=== PATIENT | female | born 1950 | race Caucasian/White ===

== ENCOUNTER 2018-07-07 16:14 | Emergency (ER) | payer MEDICARE, OTHER ==
[2018-07-07] MEDS ORDERED: Ketorolac Tromethamine 30 MG/ML VIAL ONE (16:35)
[2018-07-07 16:58] LABS: #Basophils 0.1 thou/uL (0.0-0.2); #Eosinphils 0.1 thou/uL (0.0-0.7); #Lymphocytes 2.4 thou/uL (1.20-3.40); #Monocytes 0.8 thou/uL (0.11-0.59); #Neutrophils 7.4 thou/uL (1.40-6.50); %Basophils 0.7 % (0.0-1.0); %Eosinophils 0.6 % (0.0-10.0); %Monocytes 7.4 % (0.0-10.0); %Neutrophils 69.4 % (42.0-75.0); Hemoglobin 13.4 g/dL (12.0-16.0); Mean Corpuscular HGB CONC 33.5 g/dL (32.0-36.0); Mean Corpuscular Hemoglobin 30.4 pg (27.0-31.0); Mean Corpuscular Volume 90.7 fL (78.0-98.0); Mean Platelet Volume 7.7 fL (7.4-10.4); Platelet Count 327 thou/uL (130-400); RBC Distribution Width 12.7 % (11.5-14.5); Red Blood Cell (RBC) Count 4.42 mill/uL (4.20-5.40); White Blood Cell (WBC) Count 10.7 thou/uL (4.8-10.8)
[2018-07-07 17:21] LABS: ALT (SGPT) 10 U/L (8-55); AST (SGOT) 17 U/L (5-34); Albumin 3.9 g/dL (3.4-4.8); Alkaline Phosphatase 81 U/L (40-150); Anion Gap 17 mmol/L (10-20); BUN (Urea Nitrogen) 21 mg/dL (9.8-20.1); Bilirubin, Total 0.2 mg/dL (0.2-1.2); Calc. Creatinine Clearance 0 mL/min (70-130); Calcium 8.8 mg/dL (7.8-10.44); Carbon Dioxide 18 mmol/L (23-31); Chloride 104 mmol/L (98-107); Estimated GFR-MDRD 52; Globulin 3.5 g/dL (2.4-3.5); Glucose 89 mg/dL (80-115); Lipase 19 U/L (8-78); Potassium 4.6 mmol/L (3.5-5.1); Protein, Total 7.4 g/dL (6.0-8.3); Sodium 134 mmol/L (136-145)
--- NOTE | 2018-07-07 17:21 | CT ---
CT ABDOMEN AND PELVIS WITHOUT CONTRAST: 07/07/18 HISTORY: Urinary tract infection and flank pain bilaterally. COMPARISON: None. FINDINGS: Lung bases are clear. No pericardial effusion. Gastric band is seen. No nephroureterolithiasis or hydroureteronephrosis. No secondary evidence of recently passed stone. Noncontrast evaluation of the spleen, pancreas, unremarkable. Hepatic hypodensity segment V likely a cyst. There are no dilated loops of large or small bowel. Although the pancreas is not definitely visualize d, there are no secondary signs of acute appendicitis. No retroperitoneal adenopathy. End plate irregularity at superior end plate of T11 and inferior end plate of T10 with vacuum disc ph enomenon which may sequela of degenerative changes or prior discitis/osteomyelitis. No paraspinal hem atoma. IMPRESSION: 1. No nephroureterolithiasis or hydroureteronephrosis. No secondary evidence of recently passed stone. 2. T11 vertebral body height loss with erosions of the T10 inferior end plate and T11 superior e nd plate may be sequela of prior discitis/osteomyelitis as there is vacuum disc phenomenon at this le ron. No evidence for active infection, although if clinically warranted, MRI should be obtained. 3. No acute inflammatory process within the abdomen or pelvis. POS: [facility]
[2018-07-07 17:37] LABS: Bilirubin Negative (Negative); Blood, Urine Moderate (Negative); Clarity CLEAR (Clear); Glucose, Urine (Dipstick) Negative (Negative); Leukocyte Negative (Negative); Nitrite Negative (Negative); Protein, Urine (Dipstick) Negative (Neg-Trace); Specific Gravity, Urine 1.008 (1.002-1.036); Urobilinogen 0.2 mg/dL (0.2-1.0); pH, Urine 6.5 (5.0-9.0)
[2018-07-07 17:39] LABS: Bacteria/HPF None Seen HPF (None Seen); Hyaline Casts/LPF 0-3 HYALINE CAST LPF (0-3 Hyaline); Squamous Epithelial 0-3 HPF (0-3); WBC/HPF None Seen HPF (0-3)
== END 2018-07-07 18:21 | disposition home or self-care (01) ==
LOC: ERS 16:14
DX: M51.34 Other intervertebral disc degeneration, thoracic region (principal); F41.9 Anxiety disorder, unspecified; F32.9 Major depressive disorder, single episode, unspecified; K21.9 Gastro-esophageal reflux disease without esophagitis
CPT/HCPCS: 74176; 80053; 81003; 81015; 83690; 85025; 85652; 86140; 87086; 96361; 96374; J1885

== ENCOUNTER 2019-04-23 12:57 | Outpatient (CLI) | payer MEDICARE ==
--- NOTE | 2019-04-23 15:15 | MMO ---
Bilateral MAMMO Bilat Screen [facility]. CLINICAL HISTORY: Patient is 69 years old and is seen for screening. The patient has the following family history of breast cancer: paternal grandmother, at age 75. The patient has no personal history of cancer. VIEWS: The views performed were: bilateral craniocaudal with tomosynthesis and bilateral mediolateral oblique with tomosynthesis. FILMS COMPARED: The present examination has been compared to prior imaging studies performed at [facility] on 12/06/2007, 11/02/2009, 11/08/2012 and 08/02/2016. This study has been interpreted with the assistance of computer-aided detection. MAMMOGRAM FINDINGS: The breasts are almost entirely fat. There are no suspicious masses, suspicious calcifications, or new areas of architectural distortion. IMPRESSION: THERE IS NO MAMMOGRAPHIC EVIDENCE OF MALIGNANCY. A ROUTINE FOLLOW-UP MAMMOGRAM IN 1 YEAR IS RECOMMENDED. THE RESULTS OF THIS EXAM WERE SENT TO THE PATIENT. ACR BI-RADS Category 1 - Negative MAMMOGRAPHY NOTE: 1. A negative mammogram report should not delay a biopsy if a dominant of clinically suspicious mass is present. 2. Approximately 10% to 15% of breast cancers are not detected by mammography. 3. Adenosis and dense breasts may obscure an underlying neoplasm. Reported by: ALEJANDRO CABRERA MD Electonically Signed: [id number]
== END 2019-04-23 12:58 | disposition home or self-care (01) ==
LOC: BICMAMMO 12:57
PROVIDERS: ATTEND Specialist
DX: Z12.31 Encounter for screening mammogram for malignant neoplasm of breast (principal); Z80.3 Family history of malignant neoplasm of breast
CPT/HCPCS: 77063; 77067

== ENCOUNTER 2020-05-18 09:06 | Inpatient (IN) | payer MEDICARE ==
[2020-05-18] MEDS ORDERED: Dexamethasone 20 MG/5 ML VIAL ONE (09:31)
[2020-05-18] MEDS ORDERED: Succinylcholine 200 MG/10 ml SYRINGE FS ONE (09:31)
[2020-05-18] MEDS ORDERED: ePHEDrine 50 MG/ML VIAL ONE (09:31)
[2020-05-18] MEDS ORDERED: PHENYLEPHRINE-NS 100 MCG/ML 10 ML SYRINGE ONE (09:31)
[2020-05-18] MEDS ORDERED: Lidocaine 1% PF 5 ML VIAL ONE (09:31)
[2020-05-18] MEDS ORDERED: Rocuronium Bromide 10 MG/ML (10ML VIAL) ONE (09:31)
[2020-05-18] MEDS ORDERED: PROPOFOL 200 MG/20 ML VIAL ONE (09:31)
[2020-05-18] MEDS ORDERED: Glycopyrrolate 0.2 MG/ML 5 ML SYRINGE ONE (09:31)
[2020-05-18] MEDS ORDERED: Ondansetron PF 4 MG/2 ML Vial ONE ×3 (09:31→10:04)
[2020-05-18] MEDS ORDERED: Morphine 4 MG/ML VIAL ONE ×2 (09:36→11:56)
[2020-05-18 10:06] LABS: #Eosinphils 0.1 thou/uL (0.0-0.7); #Monocytes 0.5 thou/uL (0.11-0.59); #Neutrophils 8.9 thou/uL (1.40-6.50); %Basophils 0.3 % (0.0-1.0); %Eosinophils 0.4 % (0.0-10.0); %Lymphocytes 29.5 % (21.0-51.0); %Monocytes 3.7 % (0.0-10.0); %Neutrophils 66.1 % (42.0-75.0); Hemoglobin 15.8 g/dL (12.0-16.0); Mean Corpuscular HGB CONC 33.4 g/dL (32.0-36.0); Mean Corpuscular Hemoglobin 31.2 pg (27.0-31.0); Mean Corpuscular Volume 93.6 fL (78.0-98.0); Platelet Count 344 thou/uL (130-400); RBC Distribution Width 12.4 % (11.5-14.5); Red Blood Cell (RBC) Count 5.06 mill/uL (4.20-5.40); White Blood Cell (WBC) Count 13.5 thou/uL (4.8-10.8)
--- NOTE | 2020-05-18 10:08 | RAD ---
CHEST 1 VIEW: Date: 05/18/2020 HISTORY: Abdominal pain. COMPARISON: 01/10/2017. FINDINGS: Heart size is within normal limits. Status post ACF changes lower cervical spine. There appears to be a faint small patch of increased density over the right upper mid lateral lung zone, nonspecific, co nceivably this could represent a very small patch of minimal or early pneumonitis including viral pne umonia and COVID pneumonia. No overt confluent process. No pleural effusion. No cardiomegaly. No evid ence for free intraperitoneal air. IMPRESSION: Very small patchy minimal increased density in the lateral aspect of the right upper lung zone, possi andressa a small patch of pneumonia or pneumonitis, including COVID pneumonia. No other significant acute process. POS: [facility]
[2020-05-18 10:30] LABS: ALT (SGPT) 15 U/L (8-55); AST (SGOT) 17 U/L (5-34); Albumin 3.9 g/dL (3.4-4.8); Alkaline Phosphatase 92 U/L (40-110); Anion Gap 17 mmol/L (10-20); BUN (Urea Nitrogen) 19 mg/dL (9.8-20.1); Bilirubin, Total 0.4 mg/dL (0.2-1.2); Calc. Creatinine Clearance 0 mL/min (70-130); Carbon Dioxide 17 mmol/L (23-31); Chloride 110 mmol/L (98-107); Globulin 3.4 g/dL (2.4-3.5); Glucose 169 mg/dL (83-110); Potassium 3.4 mmol/L (3.5-5.1); Protein, Total 7.3 g/dL (6.0-8.3); Sodium 141 mmol/L (136-145)
[2020-05-18] MEDS ORDERED: Iopamidol 370 76% 50 ML VIAL FS ONE (10:38)
[2020-05-18] MEDS ORDERED: Iopamidol-370 76% 500 ML 1 ML ONE (10:38)
[2020-05-18] MEDS ORDERED: Promethazine HCl 25 MG/ML VIAL ONE (11:56)
[2020-05-18] MEDS ORDERED: Piperacillin/Tazobactam 3.375 GM VIAL ONE (11:56)
--- NOTE | 2020-05-18 12:00 | CT ---
EXAM: CT Abdomen Pelvis W Con PROVIDED CLINICAL HISTORY: Abdominal pain COMPARISON: No comparison examinations are currently available FINDINGS: The visualized lung bases are free of significant opacity. There is conspicuous pneumoperitoneum. Postoperative changes of gastric bypass are demonstrated. Ther e is an ectatic appearance to the bowel about the enteric-enteric anastomosis with associated bowel dilatation and retained bowel content. There is free fluid present within the pelvis, as well as abou t the liver and spleen. The liver demonstrates a probable cyst. The solid abdominal organs demonstrate an otherwise unremarka ble CT appearance. Regional bowel appears otherwise nondilated. No focal inflammatory fat stranding is seen. Occasional atherosclerotic vascular calcifications. Post cholecystectomy change. The osseous structures demonstrate no concerning lytic or blastic lesions. Chronic appearing deformity of the right iliac wing. Small fat-containing umbilical hernia. Fat necrosis is seen involving the subcutane ous fat of the anterior abdominal wall just cranial to the umbilicus left of midline. IMPRESSION: Pneumoperitoneum and free intraperitoneal fluid, compatible with perforated viscus. Surgical consulta tion is recommended. Findings communicated to the referring clinician 11:55 AM 05/18/2020.
[2020-05-18] MEDS ORDERED: Fentanyl 250 MCG/5 ML VIAL ONE (12:37)
[2020-05-18] MEDS ORDERED: Midazolam HCl 2 mg/2 ml Vial ONE (12:37)
--- NOTE | 2020-05-18 13:22 | HP ---
CHIEF COMPLAINT: Perforated viscus. HISTORY OF PRESENT ILLNESS: This is a 70-year-old female who is one year status post laparoscopic gastric bypass done at [facility] in [place]. No significant complications postsurgical. She has lost 50 pounds. Denies chronic GERD type symptoms. She has had more upper abdominal pain in the last few weeks, was started back on antacid. The pain became more sharp this morning where she was seen in the emergency room. She was hypotensive and tachycardic on presentation. Her tachycardia and hypotension have improved somewhat with some IV fluids. She notes nausea. She notes diffuse abdominal pain that is 8/10 sharp, constant, nothing makes it better or worse. PAST MEDICAL HISTORY: She denies. PAST SURGICAL HISTORY: Gastric bypass, hysterectomy, cholecystectomy, neck surgery. MEDICINES: PPI. ALLERGIES: NO KNOWN DRUG ALLERGIES. SOCIAL HISTORY: No smoking. No alcohol. No other drugs. REVIEW OF SYSTEMS: A 10 system review of systems otherwise negative described above. PHYSICAL EXAMINATION: VITAL SIGNS: Blood pressure 112/81, her pulse is 109, respirations 12, she is afebrile. HEENT: Sclerae anicteric. Oropharynx clear. NECK: No lymphadenopathy. CHEST: Clear. HEART: Increased rate, regular rhythm. CHEST: Coarse breath sounds. ABDOMEN: Soft, diffusely tender with diffuse peritoneal signs. Well-healed abdominal incisions without obvious hernia. EXTREMITIES: No ischemia or edema to extremities. LABORATORY DATA: White blood cell count is 13, hemoglobin 15. Sodium 141, potassium 3.4, creatinine 0.93. IMAGING DATA: CT scan shows free fluid, free air in the abdomen. ASSESSMENT: Perforated viscus, likely gastrojejunostomy, perforated ulcer. PLAN: Exploratory laparotomy, washout repair. Risks, benefits, and alternatives discussed, she gives consent, we will do this today. Job ID: [id number]
[2020-05-18] MEDS ORDERED: Ondansetron HCl/PF 4 MG/2 ML Vial IVP PRN (14:53)
[2020-05-18] MEDS ORDERED: Promethazine HCl 25 MG/ML VIAL IM PRN ×3 (14:53→16:05)
[2020-05-18] MEDS ORDERED: Promethazine HCl 25 MG/ML VIAL SLOW IVP PRN (14:53)
[2020-05-18] MEDS ORDERED: Fentanyl 100 MCG/2 ML VIAL ONE (15:03)
[2020-05-18] MEDS ORDERED: diphenhydrAMINE 50 MG/ML VIAL IVP PRN (15:24)
[2020-05-18] MEDS ORDERED: Naloxone HCl 0.4 mg/ml Vial IV PRN (15:24)
[2020-05-18] MEDS ORDERED: diphenhydrAMINE 50 MG/ML VIAL IM PRN (15:24)
[2020-05-18] MEDS ORDERED: Zolpidem Tartrate 5 MG TAB PO PRN (15:24)
[2020-05-18] MEDS ORDERED: fentaNYL Citrate/PF 2,000 MCG in Sodium Chloride 0.9% 60 ML IV PRN ×2 (15:24→16:16)
[2020-05-18] MEDS ORDERED: Ondansetron PF 4 MG/2 ML Vial IVP PRN ×2 (15:24→16:05)
[2020-05-18] MEDS ORDERED: diphenhydrAMINE 25 MG CAP PO PRN (15:24)
[2020-05-18] MEDS ORDERED: Communication Order-Pharmacy FS SCH (15:30)
[2020-05-18] MEDS ORDERED: Dextrose 50% Abboject 50 ML SYRINGE SLOW IVP PRN (16:05)
[2020-05-18] MEDS ORDERED: Dextrose 5% in Water 1,000 ML IV PRN (16:05)
[2020-05-18] MEDS ORDERED: hydrALAZINE 20 MG/ML VIAL SLOW IVP PRN (16:05)
[2020-05-18 16:09] LABS: SARS-CoV-2 NAA Rapid Test Not Detected (NotDetected)
[2020-05-18 18:31] LABS: Lactic Acid 4.3 mmol/L (0.5-2.2)
[2020-05-18 20:40] VITALS: BMI 37.4
[2020-05-18] MEDS: D5 1/2 NS w/20 mEq KCL 1,000 ML IV SCH (20:41)
[2020-05-18] MEDS: Piperacillin/Tazobactam 3.375 GM in Sodium Chloride 0.9% 100 ML IVPB SCH (20:41)
[2020-05-18] MEDS: Fluconazole In NaCl,Iso-Osm 200 MG in Premix Bag 1 BAG IVPB SCH (20:41)
[2020-05-18] MEDS: Famotidine 20 MG TAB PO SCH (20:48)
[2020-05-18] MEDS: Pantoprazole 40 MG VIAL IVP SCH (20:48)
[2020-05-18] MEDS: Famotidine/PF 20 mg/2ml Vial SLOW IVP SCH (20:48)
[2020-05-19] MEDS: Piperacillin/Tazobactam 3.375 GM in Sodium Chloride 0.9% 100 ML IVPB SCH ×4 (02:07→19:53)
[2020-05-19] MEDS: D5 1/2 NS w/20 mEq KCL 1,000 ML IV SCH ×3 (06:28→14:09)
--- NOTE | 2020-05-19 08:42 | PDOC.GSPN ---
Surgery Progress Note: Subj - Subjective Narrative: Pain controlled with Swager Operator. No nausea. Ambulated yesterday. morin out this am Surgery Progress Note: Obj - Vital signs Vital signs: Vital Signs - Most Recent Temp Pulse Resp BP Pulse Ox 98.0 F 99 18 142/71 H 98 05/19/20 08:08 05/19/20 08:08 05/19/20 08:08 05/19/20 08:08 05/19/20 08:08 - Physical Exam General: no distress Respiratory: clear to auscultation Abdomen: soft, appropriately tender Wound: dressing clean,dry,intact Surgery Progress Note: Results - Labs Result Diagrams: 05/18/20 09:45 05/18/20 09:45 Surgery Progress Note: A/P - Problem (1) Perforated chronic stomach ulcer Current Visit: Yes Code(s): K25.5 - CHRONIC OR UNSPECIFIED GASTRIC ULCER WITH PERFORATION Status: Acute - Plan Plan: POD 1 -ambulate -check labs -Swallow tomorrow if clear then liquid diet
[2020-05-19] MEDS ORDERED: FLU VACC QS2020-21(65YR UP)/PF 240 MCG/0.7 ML SYRINGE IM ONE (09:00)
--- NOTE | 2020-05-19 09:00 | OP ---
DATE OF PROCEDURE: 05/18/2020 PREOPERATIVE DIAGNOSIS: Perforated viscus. POSTOPERATIVE DIAGNOSIS: Perforated marginal anastomotic ulcer. PROCEDURES PERFORMED: Exploratory laparotomy, abdominal washout, closure of stomach ulcer with omental patch repair. ANESTHESIA: General. ESTIMATED BLOOD LOSS: Minimal. COMPLICATIONS: None. FINDINGS: Diffuse peritonitis. There was a perforated marginal ulcer at the gastrojejunal anastomosis. TECHNIQUE: The patient was taken to the operating room and laid supine on the operating room table. After general anesthetic was obtained, a Gallagher was placed. The abdomen was prepped and draped in a sterile fashion. Midline incision was made. Bookwalter retractor was placed. The abdomen was irrigated out. There was obvious perforation at the gastrojejunostomy anastomosis. 3-0 PDS was used to over-sew this. The abdomen was then irrigated out with multiple liters of warm sterile saline until returns were clear. Omentum was easily able to be pulled up over the top of this and the omentum was sutured using silk sutures around the perforation. All instrument counts, needle counts, lap counts were correct. The midline fascia was closed using #1 PDS from the top and the bottom and tied in the middle. Subcutaneous tissues were irrigated. Skin was closed using skin sabino. Telfa gaudencio were placed in between the sabino. The patient was sent to Recovery in stable condition. All instrument counts, needle counts, lap counts are correct. Job ID: [id number]
[2020-05-19 09:05] LABS: Anion Gap 16 mmol/L (10-20); BUN (Urea Nitrogen) 12 mg/dL (9.8-20.1); Calc. Creatinine Clearance 98 mL/min (70-130); Calcium 8.2 mg/dL (7.8-10.44); Carbon Dioxide 18 mmol/L (23-31); Chloride 112 mmol/L (98-107); Glucose 126 mg/dL (83-110); Potassium 4.7 mmol/L (3.5-5.1); Sodium 141 mmol/L (136-145)
[2020-05-19 09:10] LABS: Hemoglobin 12.9 g/dL (12.0-16.0); Mean Corpuscular HGB CONC 30.9 g/dL (32.0-36.0); Mean Corpuscular Volume 97.1 fL (78.0-98.0); Mean Platelet Volume 7.8 fL (7.4-10.4); Platelet Count 261 thou/uL (130-400); RBC Distribution Width 12.6 % (11.5-14.5); Red Blood Cell (RBC) Count 4.29 mill/uL (4.20-5.40); White Blood Cell (WBC) Count 21.9 thou/uL (4.8-10.8)
[2020-05-19] MEDS: Famotidine 20 MG TAB PO SCH ×2 (10:18→19:56)
[2020-05-19] MEDS: Pantoprazole 40 MG VIAL IVP SCH ×2 (10:24→19:56)
[2020-05-19 10:31] LABS: Band 11 % (5-11); Lymphocytes 11 % (21-51); MDiff Complete? YES; Monocytes 5 % (0-10); Neutrophil 72 % (42-75); Platelet Morphology Comment Appears Adequate; Polychromasia SLIGHT = 2-3 cells (100X) (0-2/hpf); Promyelocytes 1 % (0-0)
[2020-05-19] MEDS: Famotidine/PF 20 mg/2ml Vial SLOW IVP SCH ×2 (10:33→19:56)
[2020-05-19] MEDS: Fluconazole In NaCl,Iso-Osm 200 MG in Premix Bag 1 BAG IVPB SCH (21:00)
[2020-05-20] MEDS: Piperacillin/Tazobactam 3.375 GM in Sodium Chloride 0.9% 100 ML IVPB SCH ×4 (02:56→20:29)
[2020-05-20] MEDS: D5 1/2 NS w/20 mEq KCL 1,000 ML IV SCH ×2 (02:57→09:57)
[2020-05-20] MEDS ORDERED: FLU VACC QS2020-21(65YR UP)/PF 240 MCG/0.7 ML SYRINGE IM ONE (09:00)
--- NOTE | 2020-05-20 09:54 | RAD ---
EXAM: XR Barium Swallow Esophagus DATE: 05/20/2020 9:00 AM INDICATION: Repair of a gastric ulcer with placement of a omental patch COMPARISON: CT the abdomen and pelvis dated May 18, 2020 FINDING: Fluoroscopic time: 2.1 minutes. Total exposure 37.39 neff per centimeter square. The single contrast Gastrografin esophagram demonstrates postprocedural change of a gastric bypass. T here has been revision of the gastric bypass. The gastric pouch is now communicating with a loop of small bowel within the left upper quadrant of the abdomen. There is no extravasation of contrast from the gastroenteric anastomosis or from the gastric pouch. There were tertiary contractions of the mid to distal esophagus. The partially opacified small bowel appeared within normal limits. IMPRESSION:No extraluminal leakage of contrast to suggest presence of leak. Tertiary contractions of the mid to distal esophagus may be related to presbyesophagus or mild esophagitis.
[2020-05-20] MEDS: Famotidine 20 MG TAB PO SCH ×2 (09:59→20:31)
[2020-05-20] MEDS: Famotidine/PF 20 mg/2ml Vial SLOW IVP SCH ×2 (09:59→20:31)
[2020-05-20] MEDS: Pantoprazole 40 MG VIAL IVP SCH ×2 (10:01→20:31)
[2020-05-20] MEDS ORDERED: D5 1/2 NS w/20 mEq KCL 1,000 ML IV SCH (10:28)
[2020-05-20] MEDS ORDERED: Fentanyl 100 MCG/2 ML VIAL SLOW IVP PRN ×2 (14:48)
--- NOTE | 2020-05-20 15:07 | PRG ---
DATE OF SERVICE: 05/20/2020 SUBJECTIVE: Ms. Blanchard is feeling better this afternoon. She is tolerating the clear liquids without difficulty. OBJECTIVE: VITAL SIGNS: She is afebrile and her vital signs are stable. Urine output is adequate. ABDOMEN: Soft, appropriately tender. Wounds are healing well. ASSESSMENT: Postoperative day #2, patch repair of perforated marginal ulcer. PLAN: Gastrografin swallow is negative. We will start clear liquids. Discontinue CLAM PICKER. Potentially home tomorrow if doing well. We will remove gaudencio tomorrow prior to discharge. Job ID: [id number]
[2020-05-20] MEDS: HYDROcodone/Acetaminophen 7.5/325 mg Tablet PO PRN (17:49)
[2020-05-20] MEDS: traMADol HCl 50 MG TAB PO PRN (23:03)
[2020-05-20] MEDS: Fluconazole In NaCl,Iso-Osm 200 MG in Premix Bag 1 BAG IVPB SCH (23:05)
[2020-05-21] MEDS: HYDROcodone/Acetaminophen 7.5/325 mg Tablet PO PRN ×2 (01:34→11:18)
[2020-05-21] MEDS: Piperacillin/Tazobactam 3.375 GM in Sodium Chloride 0.9% 100 ML IVPB SCH ×2 (01:35→09:16)
[2020-05-21] MEDS: traMADol HCl 50 MG TAB PO PRN (05:48)
--- NOTE | 2020-05-21 08:29 | DIS ---
DATE OF ADMISSION: 05/18/2020 DATE OF DISCHARGE: 05/21/2020 DISCHARGE DIAGNOSIS: Perforated marginal ulcer. DISCHARGE DIAGNOSIS: Perforated marginal ulcer. PROCEDURES: Exploratory laparotomy, omental patch and closure of marginal ulcer by Dr. Garcia without complication. CONDITION ON DISCHARGE: Improved. HOSPITAL COURSE: On postop day 1, the patient's pain was controlled. She was ambulatory. On postop day 2, she underwent barium swallow, which revealed no leakage from the repair site. She was started on clear liquid diet. On postop day 3, the patient is tolerating a liquid diet. She is ready for discharge. She is ambulatory, afebrile. Pain is controlled. CONDITION AT DISCHARGE: Improved. STAFF: Rafat Garcia MD Prescriptions for Augmentin, Diflucan, hydrocodone, and Zofran sent to [facility]. She will follow up with me in 2 weeks for staple removal. Job ID: [id number]
[2020-05-21] MEDS: Famotidine/PF 20 mg/2ml Vial SLOW IVP SCH (09:16)
[2020-05-21] MEDS: Famotidine 20 MG TAB PO SCH (09:16)
[2020-05-21] MEDS: Pantoprazole 40 MG VIAL IVP SCH (09:16)
[2020-05-21 11:37] VITALS: BP 131/82; TEMP 98.1
== END 2020-05-21 12:44 | disposition home or self-care (01) | DRG 328 ==
LOC: ERS 09:06 → SURG A 16:05
PROVIDERS: ADMIT Surgery; ATTEND Surgery
PROC: 0DU707Z Supplement Stomach, Pylorus with Autologous Tissue Substitute, Open Approach (ICD-10-PCS; principal; 2020-05-18)
DX: K25.1 Acute gastric ulcer with perforation (principal); Z20.828 Contact with and (suspected) exposure to other viral communicable diseases; F41.9 Anxiety disorder, unspecified; F32.9 Major depressive disorder, single episode, unspecified; Z90.710 Acquired absence of both cervix and uterus; Z90.49 Acquired absence of other specified parts of digestive tract; Z98.84 Bariatric surgery status
CPT/HCPCS: 36415; 71045; 74177; 74220; 80048; 80053; 83605; 84484; 85025; 87040; 93005; C9113; J1100; J1450; J2250; J2270; J2405; J2543; J2550; J2704; J3010; J3480; J3490; Q9967; S0028; U0002

== ENCOUNTER 2022-01-02 15:22 | Emergency (ER) | payer MEDICARE ==
[~2022-01-02 15:22] MED LIST: Iopamidol-370 76% 500 ML 1 ML ONE
[2022-01-02 15:49] LABS: #Basophils 0.1 thou/uL (0.0-0.2); #Eosinphils 0.1 thou/uL (0.0-0.7); #Lymphocytes 3.7 thou/uL (1.20-3.40); #Monocytes 0.7 thou/uL (0.11-0.59); #Neutrophils 5.7 thou/uL (1.40-6.50); %Basophils 0.9 % (0.0-1.0); %Eosinophils 0.9 % (0.0-10.0); %Lymphocytes 35.6 % (21.0-51.0); %Monocytes 7.2 % (0.0-10.0); %Neutrophils 55.4 % (42.0-75.0); Hemoglobin 13.3 g/dL (12.0-16.0); Mean Corpuscular HGB CONC 34.6 g/dL (32.0-36.0); Mean Corpuscular Hemoglobin 32.8 pg (27.0-31.0); Mean Corpuscular Volume 94.8 fL (78.0-98.0); Mean Platelet Volume 7.7 fL (7.4-10.4); Platelet Count 344 thou/uL (130-400); RBC Distribution Width 13.3 % (11.5-14.5); Red Blood Cell (RBC) Count 4.05 mill/uL (4.20-5.40); White Blood Cell (WBC) Count 10.3 thou/uL (4.8-10.8)
[2022-01-02 16:11] LABS: ALT (SGPT) 13 U/L (8-55); AST (SGOT) 19 U/L (5-34); Albumin 3.9 g/dL (3.4-4.8); Alkaline Phosphatase 74 U/L (40-110); Anion Gap 16 mmol/L (10-20); BUN (Urea Nitrogen) 15 mg/dL (9.8-20.1); Bilirubin, Total 0.2 mg/dL (0.2-1.2); Calc. Creatinine Clearance 0 mL/min (70-130); Carbon Dioxide 19 mmol/L (23-31); Chloride 108 mmol/L (98-107); Estimated GFR 49; Globulin 3.6 g/dL (2.4-3.5); Glucose 107 mg/dL (83-110); Lipase 43 U/L (8-78); Potassium 4.2 mmol/L (3.5-5.1); Protein, Total 7.5 g/dL (5.8-8.1); Sodium 139 mmol/L (136-145)
[2022-01-02] MEDS ORDERED: Pantoprazole 40 MG VIAL ONE (16:42)
== END 2022-01-02 18:30 | disposition home or self-care (01) ==
LOC: ERS 15:22
DX: K52.9 Noninfective gastroenteritis and colitis, unspecified (principal); K21.9 Gastro-esophageal reflux disease without esophagitis; E03.9 Hypothyroidism, unspecified; Z79.899 Other long term (current) drug therapy
CPT/HCPCS: 36415; 74177; 80053; 83690; 84484; 85025; 93005; 96374; C9113; Q9967

== ENCOUNTER 2022-07-24 18:09 | Observation (INO) | payer MEDICARE ==
[2022-07-24] MEDS ORDERED: Ondansetron PF 4 MG/2 ML Vial IVP PRN (19:49)
[2022-07-24] MEDS ORDERED: Dextrose 5% in Water 1,000 ML IV PRN (19:49)
[2022-07-24] MEDS ORDERED: Ipratropium/Albuterol 3 ML NEB NEB PRN (19:49)
[2022-07-24] MEDS ORDERED: diphenhydrAMINE 50 MG/ML VIAL IVP PRN (19:49)
[2022-07-24] MEDS ORDERED: Dextrose 50% Abboject 50 ML SYRINGE SLOW IVP PRN (19:49)
[2022-07-24] MEDS ORDERED: hydrALAZINE 20 MG/ML VIAL SLOW IVP PRN (19:49)
[2022-07-24] MEDS ORDERED: Promethazine HCl 25 MG/ML VIAL IM PRN (19:49)
[2022-07-24] MEDS ORDERED: Acetaminophen 650 MG/20.3 ML UDCUP PO PRN (19:54)
[2022-07-24 21:34] VITALS: BMI 33.3
[2022-07-24] MEDS: Multivitamin W/ Minerals 1 TAB PO SCH (21:35)
[2022-07-24] MEDS: Sodium Chloride 0.9% 1,000 ML IV SCH (21:39)
[2022-07-24] MEDS: Morphine 2 MG/ML VIAL SLOW IVP PRN (21:48)
[2022-07-25] MEDS ORDERED: ALPRAZolam 0.5 MG TAB PO PRN (00:58)
[2022-07-25] MEDS: Morphine 2 MG/ML VIAL SLOW IVP PRN ×3 (03:26→23:20)
[2022-07-25 03:53] LABS: SARS-CoV-2 NAA Rapid Test Not Detected (NotDetected)
[2022-07-25 06:17] LABS: #Lymphocytes 3.2 thou/uL (1.20-3.40); #Monocytes 0.7 thou/uL (0.11-0.59); #Neutrophils 3.6 thou/uL (1.40-6.50); %Basophils 0.3 % (0.0-1.0); %Eosinophils 0.6 % (0.0-10.0); %Lymphocytes 42.1 % (21.0-51.0); %Monocytes 8.8 % (0.0-10.0); %Neutrophils 48.2 % (42.0-75.0); Hemoglobin 12.2 g/dL (12.0-16.0); Mean Corpuscular HGB CONC 33.3 g/dL (32.0-36.0); Mean Corpuscular Hemoglobin 31.7 pg (27.0-31.0); Mean Corpuscular Volume 95.4 fl (78.0-98.0); Platelet Count 290 10x3/uL (130-400); RBC Distribution Width 12.5 % (11.5-14.5); Red Blood Cell (RBC) Count 3.84 mill/uL (4.20-5.40); White Blood Cell (WBC) Count 7.5 10x3/uL (4.8-10.8)
[2022-07-25 06:36] LABS: Anion Gap 11 mmol/L (10-20); BUN (Urea Nitrogen) 11 mg/dL (9.8-20.1); Calc. Creatinine Clearance 94 mL/min (70-130); Carbon Dioxide 23 mmol/L (23-31); Chloride 110 mmol/L (98-107); Estimated GFR 85; Glucose 89 mg/dL (83-110); Potassium 3.5 mmol/L (3.5-5.1); Sodium 140 mmol/L (136-145)
[2022-07-25] MEDS: Pantoprazole 40 MG VIAL IVP SCH (08:26)
[2022-07-25] MEDS: Multivitamin W/ Minerals 1 TAB PO SCH ×2 (08:26→20:20)
[2022-07-25] MEDS ORDERED: Lidocaine 1% PF 5 ML VIAL ONE (15:43)
[2022-07-25] MEDS ORDERED: PROPOFOL 200 MG/20 ML VIAL ONE (15:43)
[2022-07-25] MEDS: Sucralfate 1 GM/10 ML UDCUP PO SCH ×2 (18:15→20:21)
[2022-07-25] MEDS: Sodium Chloride 0.9% 1,000 ML IV SCH ×2 (18:15→22:56)
[2022-07-26] MEDS: Morphine 2 MG/ML VIAL SLOW IVP PRN (05:10)
[2022-07-26 05:43] VITALS: BP 119/65
[2022-07-26 08:15] VITALS: TEMP 98.6
[2022-07-26] MEDS: Sucralfate 1 GM/10 ML UDCUP PO SCH (08:45)
[2022-07-26] MEDS: Pantoprazole 40 MG VIAL IVP SCH (08:46)
[2022-07-26] MEDS: Multivitamin W/ Minerals 1 TAB PO SCH (08:46)
== END 2022-07-26 12:21 | disposition home or self-care (01) ==
LOC: SURG A 18:09
PROVIDERS: ADMIT Surgery; ATTEND Surgery
PROC: 0DJ08ZZ Inspection of Upper Intestinal Tract, Via Natural or Artificial Opening Endoscopic (ICD-10-PCS; principal; 2022-07-25)
DX: K28.9 Gastrojejunal ulcer, unspecified as acute or chronic, without hemorrhage or perforation (principal); K20.80 Other esophagitis without bleeding; K21.9 Gastro-esophageal reflux disease without esophagitis; E03.9 Hypothyroidism, unspecified; E66.3 Overweight; Z68.33 Body mass index [BMI] 33.0-33.9, adult; Z79.890 Hormone replacement therapy; Z79.899 Other long term (current) drug therapy; Z88.2 Allergy status to sulfonamides; Z98.84 Bariatric surgery status; Z20.822 Contact with and (suspected) exposure to COVID-19
CPT/HCPCS: 43235; 80048; 85025; U0002; 36415; 96374; 96375; 96376; C9113; G0378; J2272; J2405; J2704; J7050

== ENCOUNTER 2023-01-30 06:28 | Inpatient (IN) | payer MEDICARE ==
[2023-01-30] MEDS ORDERED: Ondansetron PF 4 MG/2 ML Vial ONE ×2 (07:00→10:04)
[2023-01-30] MEDS ORDERED: Ketorolac Tromethamine 30 MG/ML VIAL ONE (07:00)
[2023-01-30 07:18] LABS: #Monocytes 0.8 thou/uL (0.11-0.59); #Neutrophils 13.5 thou/uL (1.40-6.50); %Basophils 0.1 % (0.0-1.0); %Lymphocytes 11.6 % (21.0-51.0); %Monocytes 4.8 % (0.0-10.0); %Neutrophils 83.3 % (42.0-75.0); Hematocrit 40.9 % (36.0-47.0); Hemoglobin 13.8 g/dL (12.0-16.0); Mean Corpuscular HGB CONC 33.7 g/dL (32.0-36.0); Mean Corpuscular Hemoglobin 30.7 pg (27.0-31.0); Mean Corpuscular Volume 90.9 fl (78.0-98.0); Mean Platelet Volume 10.3 fL (7.4-10.4); Platelet Count 335 10x3/uL (130-400); RBC Distribution Width 14.8 % (11.5-14.5); White Blood Cell (WBC) Count 16.2 10x3/uL (4.8-10.8)
[2023-01-30 07:43] LABS: ALT (SGPT) 11 U/L (8-55); AST (SGOT) 14 U/L (5-34); Albumin 3.8 g/dL (3.4-4.8); Alkaline Phosphatase 75 U/L (40-110); Anion Gap 15 mmol/L (10-20); BUN (Urea Nitrogen) 19 mg/dL (9.8-20.1); Bilirubin, Total 0.4 mg/dL (0.2-1.2); Calc. Creatinine Clearance 0 mL/min (70-130); Calcium 9.4 mg/dL (7.8-10.44); Carbon Dioxide 19 mmol/L (23-31); Chloride 108 mmol/L (98-107); Estimated GFR 68; Glucose 153 mg/dL (83-110); Lipase 10 U/L (8-78); Potassium 3.8 mmol/L (3.5-5.1); Protein, Total 6.8 g/dL (5.8-8.1); Sodium 138 mmol/L (136-145)
[2023-01-30] MEDS ORDERED: Piperacillin/Tazobactam 4.5 GM VIAL ONE (09:20)
[2023-01-30] MEDS ORDERED: Morphine 4 MG/ML VIAL ONE (09:44)
[2023-01-30] MEDS ORDERED: Promethazine HCl 25 MG/ML VIAL IM PRN (10:49)
[2023-01-30] MEDS ORDERED: hydrALAZINE 20 MG/ML VIAL SLOW IVP PRN (10:49)
[2023-01-30] MEDS ORDERED: Dextrose 50% Abboject 50 ML SYRINGE SLOW IVP PRN (10:49)
[2023-01-30] MEDS ORDERED: Dextrose 5% in Water 1,000 ML IV PRN (10:49)
[2023-01-30] MEDS ORDERED: Glucagon 1 MG/ML KIT IM PRN (10:49)
[2023-01-30] MEDS ORDERED: Ondansetron PF 4 MG/2 ML Vial IVP PRN (10:49)
[2023-01-30 11:14] VITALS: BMI 30.7
[2023-01-30] MEDS ORDERED: Pantoprazole 40 MG VIAL IVP SCH (11:15)
[2023-01-30] MEDS: Morphine 2 MG/ML VIAL SLOW IVP PRN ×4 (11:26→21:27)
[2023-01-30] MEDS: D5 1/2 NS w/20 mEq KCL 1,000 ML IV SCH ×2 (11:28→13:17)
[2023-01-30] MEDS ORDERED: Pantoprazole 80 MG, Admixture Fee 1 EACH in Sodium Chloride 0.9% 100 ML IVPB SCH (12:00)
[2023-01-30] MEDS ORDERED: Fluconazole In NaCl,Iso-Osm 400 MG in Premix Bag 1 BAG IVPB SCH (12:00)
[2023-01-30] MEDS ORDERED: TETANUS, DIPHTHERIA TOX,ADULT (TDVAX) 0.5 ML VIAL IM ONE (12:00)
[2023-01-30] MEDS ORDERED: Piperacillin/Tazobactam 3.375 GM in Sodium Chloride 0.9% 100 ML IVPB SCH (12:00)
[2023-01-30] MEDS ORDERED: Iopamidol-370 76% 500 ML MDV (1 ML CHARGE) ONE (14:12)
[2023-01-30] MEDS: Piperacillin/Tazobactam 3.375 GM in Sodium Chloride 0.9% 100 ML IVPB SCH ×2 (16:08→21:27)
[2023-01-31] MEDS: D5 1/2 NS w/20 mEq KCL 1,000 ML IV SCH ×7 (00:05→19:39)
[2023-01-31] MEDS: Morphine 2 MG/ML VIAL SLOW IVP PRN ×2 (00:05→05:28)
[2023-01-31] MEDS: Piperacillin/Tazobactam 3.375 GM in Sodium Chloride 0.9% 100 ML IVPB SCH ×3 (05:28→22:36)
[2023-01-31 06:36] LABS: #Monocytes 1.1 thou/uL (0.11-0.59); #Neutrophils 11.9 thou/uL (1.40-6.50); %Basophils 0.1 % (0.0-1.0); %Lymphocytes 18.7 % (21.0-51.0); %Monocytes 6.6 % (0.0-10.0); %Neutrophils 74.2 % (42.0-75.0); Hematocrit 34.6 % (36.0-47.0); Hemoglobin 11.3 g/dL (12.0-16.0); Mean Corpuscular HGB CONC 32.7 g/dL (32.0-36.0); Mean Platelet Volume 10.1 fL (7.4-10.4); Platelet Count 282 10x3/uL (130-400); RBC Distribution Width 15.1 % (11.5-14.5); Red Blood Cell (RBC) Count 3.65 mill/uL (4.20-5.40); White Blood Cell (WBC) Count 16.1 10x3/uL (4.8-10.8)
[2023-01-31 06:47] LABS: Mean Corpuscular Volume 94.8 fl (78.0-98.0)
[2023-01-31 07:19] LABS: Anion Gap 9 mmol/L (10-20); BUN (Urea Nitrogen) 16 mg/dL (9.8-20.1); Calc. Creatinine Clearance 82 mL/min (70-130); Calcium 7.9 mg/dL (7.8-10.44); Carbon Dioxide 20 mmol/L (23-31); Chloride 111 mmol/L (98-107); Estimated GFR 74; Glucose 110 mg/dL (83-110); Sodium 136 mmol/L (136-145)
[2023-01-31] MEDS ORDERED: Pantoprazole 40 MG VIAL IVP ONE (11:10)
[2023-01-31] MEDS: Fluconazole In NaCl,Iso-Osm 200 MG in Premix Bag 1 BAG IVPB SCH ×2 (12:30→13:36)
[2023-01-31] MEDS ORDERED: fentaNYL 50 mcg/mL 1 mL Vial ONE ×3 (13:42→16:54)
[2023-01-31] MEDS ORDERED: Piperacillin/Tazobactam 3.375 GM VIAL ONE (13:43)
[2023-01-31] MEDS ORDERED: Sodium Chloride 0.9% 100 ML ONE (13:43)
[2023-01-31] MEDS ORDERED: fentaNYL PF 100 MCG/2 ML SYRINGE ONE (14:16)
[2023-01-31] MEDS ORDERED: Vasopressin 20 UNITS/ML VIAL ONE (14:17)
[2023-01-31] MEDS ORDERED: SUGAMMADEX SODIUM 200 MG/2 ML VIAL ONE (14:17)
[2023-01-31] MEDS ORDERED: PROPOFOL 200 MG/20 ML VIAL ONE (14:42)
[2023-01-31] MEDS ORDERED: Ondansetron PF 4 MG/2 ML Vial ONE (14:42)
[2023-01-31] MEDS ORDERED: Rocuronium Bromide 10 MG/ML (10ML VIAL) ONE (14:42)
[2023-01-31] MEDS ORDERED: Succinylcholine 200 MG/10 ml SYRINGE FS ONE (14:42)
[2023-01-31] MEDS ORDERED: Dexamethasone 20 MG/5 ML VIAL ONE (14:42)
[2023-01-31] MEDS ORDERED: Lidocaine 1% PF 5 ML VIAL ONE (14:42)
[2023-01-31] MEDS ORDERED: Ondansetron HCl/PF 4 MG/2 ML Vial IVP PRN (15:23)
[2023-01-31] MEDS ORDERED: Promethazine HCl 25 MG/ML VIAL IM PRN ×3 (15:23→17:34)
[2023-01-31] MEDS ORDERED: HYDROmorphone 2 MG/ML VIAL SLOW IVP PRN (15:23)
[2023-01-31] MEDS ORDERED: HYDROmorphone 0.5 MG/0.5 ML SYRINGE ONE (16:05)
[2023-01-31] MEDS ORDERED: diphenhydrAMINE 50 MG/ML VIAL IM PRN (16:09)
[2023-01-31] MEDS ORDERED: diphenhydrAMINE 25 MG CAP PO PRN (16:09)
[2023-01-31] MEDS ORDERED: Naloxone HCl 0.4 mg/ml Vial IV PRN (16:09)
[2023-01-31] MEDS ORDERED: FENTANYL 500 MCG/10 ML VIAL 2,000 MCG in Sodium Chloride 0.9% 60 ML IV PRN (16:09)
[2023-01-31] MEDS ORDERED: Ondansetron PF 4 MG/2 ML Vial IVP PRN ×2 (16:09→17:34)
[2023-01-31] MEDS ORDERED: diphenhydrAMINE 50 MG/ML VIAL IVP PRN ×2 (16:09→17:34)
[2023-01-31] MEDS ORDERED: Communication Order-Pharmacy FS SCH (16:15)
[2023-01-31] MEDS ORDERED: Fentanyl CADD 100 ML IVPB PRN (16:35)
[2023-01-31] MEDS ORDERED: Ipratropium/Albuterol 3 ML NEB NEB PRN (17:34)
[2023-01-31] MEDS ORDERED: Glucagon 1 MG/ML KIT IM PRN (17:34)
[2023-01-31] MEDS ORDERED: hydrALAZINE 20 MG/ML VIAL SLOW IVP PRN (17:34)
[2023-01-31] MEDS ORDERED: Dextrose 50% Abboject 50 ML SYRINGE SLOW IVP PRN (17:34)
[2023-01-31] MEDS ORDERED: Dextrose 5% in Water 1,000 ML IV PRN (17:34)
[2023-02-01] MEDS: D5 1/2 NS w/20 mEq KCL 1,000 ML IV SCH ×2 (02:29→17:38)
[2023-02-01 05:42] LABS: #Monocytes 0.7 thou/uL (0.11-0.59); #Neutrophils 11.9 thou/uL (1.40-6.50); %Basophils 0.1 % (0.0-1.0); %Lymphocytes 9.1 % (21.0-51.0); %Neutrophils 85.2 % (42.0-75.0); Hematocrit 35.2 % (36.0-47.0); Hemoglobin 11.4 g/dL (12.0-16.0); Mean Corpuscular HGB CONC 32.4 g/dL (32.0-36.0); Mean Corpuscular Hemoglobin 30.6 pg (27.0-31.0); Mean Corpuscular Volume 94.6 fl (78.0-98.0); Mean Platelet Volume 10.2 fL (7.4-10.4); Platelet Count 258 10x3/uL (130-400); RBC Distribution Width 14.9 % (11.5-14.5); Red Blood Cell (RBC) Count 3.72 mill/uL (4.20-5.40)
[2023-02-01 06:04] LABS: Anion Gap 9 mmol/L (10-20); BUN (Urea Nitrogen) 10 mg/dL (9.8-20.1); Calc. Creatinine Clearance 80 mL/min (70-130); Calcium 8.2 mg/dL (7.8-10.44); Carbon Dioxide 23 mmol/L (23-31); Chloride 110 mmol/L (98-107); Estimated GFR 72; Glucose 147 mg/dL (83-110); Potassium 4.6 mmol/L (3.5-5.1); Sodium 137 mmol/L (136-145)
[2023-02-01] MEDS: Piperacillin/Tazobactam 3.375 GM in Sodium Chloride 0.9% 100 ML IVPB SCH ×3 (06:05→21:38)
[2023-02-01] MEDS: Pantoprazole 40 MG VIAL IVP SCH (08:05)
[2023-02-01] MEDS ORDERED: Promethazine HCl 25 MG/ML VIAL IM PRN (12:45)
[2023-02-01] MEDS ORDERED: diphenhydrAMINE 50 MG/ML VIAL IM/IV PRN (12:45)
[2023-02-01] MEDS ORDERED: diphenhydrAMINE 25 MG CAP PO PRN (12:45)
[2023-02-01] MEDS ORDERED: Naloxone HCl 0.4 mg/ml Vial IV PRN (12:45)
[2023-02-01] MEDS ORDERED: Fentanyl CADD 100 ML IVPB SCH (12:45)
[2023-02-01] MEDS ORDERED: Zolpidem Tartrate 5 MG TAB PO PRN (12:46)
[2023-02-01] MEDS: Ondansetron PF 4 MG/2 ML Vial IVP PRN ×2 (15:27→21:38)
[2023-02-02] MEDS: D5 1/2 NS w/20 mEq KCL 1,000 ML IV SCH ×3 (02:03→11:25)
[2023-02-02 05:42] LABS: #Eosinphils 0.1 thou/uL (0.0-0.7); #Monocytes 0.7 thou/uL (0.11-0.59); #Neutrophils 8.3 thou/uL (1.40-6.50); %Basophils 0.1 % (0.0-1.0); %Lymphocytes 22.5 % (21.0-51.0); %Monocytes 5.9 % (0.0-10.0); %Neutrophils 70.1 % (42.0-75.0); Hematocrit 33.5 % (36.0-47.0); Hemoglobin 11.1 g/dL (12.0-16.0); Mean Corpuscular HGB CONC 33.1 g/dL (32.0-36.0); Mean Corpuscular Hemoglobin 31.3 pg (27.0-31.0); Mean Corpuscular Volume 94.4 fl (78.0-98.0); Mean Platelet Volume 10.4 fL (7.4-10.4); Platelet Count 277 10x3/uL (130-400); RBC Distribution Width 14.8 % (11.5-14.5); Red Blood Cell (RBC) Count 3.55 mill/uL (4.20-5.40); White Blood Cell (WBC) Count 11.8 10x3/uL (4.8-10.8)
[2023-02-02] MEDS: Piperacillin/Tazobactam 3.375 GM in Sodium Chloride 0.9% 100 ML IVPB SCH ×3 (06:01→21:27)
[2023-02-02 06:10] LABS: Anion Gap 8 mmol/L (10-20); BUN (Urea Nitrogen) 7 mg/dL (9.8-20.1); Calc. Creatinine Clearance 90 mL/min (70-130); Calcium 8.6 mg/dL (7.8-10.44); Carbon Dioxide 26 mmol/L (23-31); Chloride 108 mmol/L (98-107); Estimated GFR 83; Glucose 106 mg/dL (83-110); Potassium 3.6 mmol/L (3.5-5.1); Sodium 138 mmol/L (136-145)
[2023-02-02] MEDS: Pantoprazole 40 MG VIAL IVP SCH (08:30)
[2023-02-02] MEDS ORDERED: MD-Gastroview 120 ML BOT ONE (12:37)
[2023-02-02] MEDS: Hydrocodone-Acetamin 15 ML UDCUP PO PRN (15:41)
[2023-02-02] MEDS: fentaNYL 50 mcg/mL 1 mL Vial SLOW IVP PRN (21:28)
[2023-02-03] MEDS: fentaNYL 50 mcg/mL 1 mL Vial SLOW IVP PRN (02:10)
[2023-02-03] MEDS: Piperacillin/Tazobactam 3.375 GM in Sodium Chloride 0.9% 100 ML IVPB SCH (05:11)
[2023-02-03] MEDS: Hydrocodone-Acetamin 15 ML UDCUP PO PRN ×4 (05:12→20:14)
[2023-02-03] MEDS: Ondansetron PF 4 MG/2 ML Vial IVP PRN ×2 (05:12→18:56)
[2023-02-03] MEDS: D5 1/2 NS w/20 mEq KCL 1,000 ML IV SCH ×4 (05:13→16:18)
[2023-02-03] MEDS: Pantoprazole 40 MG VIAL IVP SCH (09:52)
[2023-02-03] MEDS ORDERED: Milk Of Magnesia 30 ML UDCUP PER TUBE SCH (13:30)
[2023-02-04] MEDS: D5 1/2 NS w/20 mEq KCL 1,000 ML IV SCH ×2 (00:32→09:14)
[2023-02-04] MEDS: Hydrocodone-Acetamin 15 ML UDCUP PO PRN ×4 (03:31→19:40)
[2023-02-04] MEDS: Pantoprazole 40 MG VIAL IVP SCH (09:14)
[2023-02-04] MEDS: fentaNYL 50 mcg/mL 1 mL Vial SLOW IVP PRN (20:53)
[2023-02-05] MEDS: Hydrocodone-Acetamin 15 ML UDCUP PO PRN ×3 (00:27→12:03)
[2023-02-05] MEDS: Pantoprazole 40 MG VIAL IVP SCH (09:08)
[2023-02-05 13:24] VITALS: BP 153/83; TEMP 98.9
== END 2023-02-05 13:55 | disposition home or self-care (01) | DRG 329 ==
LOC: ERS 06:28 → SJJU 09:47
PROVIDERS: ADMIT Specialist; ATTEND Specialist
PROC: 0DBA0ZZ Excision of Jejunum, Open Approach (ICD-10-PCS; principal; 2023-01-31)
PROC: 0DB80ZZ Excision of Small Intestine, Open Approach (ICD-10-PCS; 2023-01-31)
PROC: 0D9670Z Drainage of Stomach with Drainage Device, Via Natural or Artificial Opening (ICD-10-PCS; 2023-01-31)
DX: K25.5 Chronic or unspecified gastric ulcer with perforation (principal); K63.1 Perforation of intestine (nontraumatic); K21.9 Gastro-esophageal reflux disease without esophagitis; E03.9 Hypothyroidism, unspecified; F41.9 Anxiety disorder, unspecified; F32.A Depression, unspecified; E66.01 Morbid (severe) obesity due to excess calories; Z98.890 Other specified postprocedural states; Z90.49 Acquired absence of other specified parts of digestive tract; Z90.710 Acquired absence of both cervix and uterus; Z88.2 Allergy status to sulfonamides; Z68.30 Body mass index [BMI] 30.0-30.9, adult
CPT/HCPCS: 36415; 74177; 74240; 80048; 80053; 83690; 85025; 87040; 88307; 93005; 96361; 96365; 96375; 96376; A4314; A4649; C9113; J1100; J1170; J1450; J1650; J1885; J2270; J2272; J2405; J2543; J2550; J2704; J3010; J3480; J3490; Q9963; Q9967

== ENCOUNTER 2023-02-06 19:36 | Emergency (ER) | payer MEDICARE | END 2023-02-06 19:50 | disposition left against medical advice (07) | LOC: ERS 19:36 | DX: Z53.21 Procedure and treatment not carried out due to patient leaving prior to being seen by health care provider (principal) ==

== ENCOUNTER 2023-03-06 03:57 | Emergency (ER) | payer MEDICARE ==
[2023-03-06] MEDS ORDERED: Ondansetron PF 4 MG/2 ML Vial ONE (04:30)
[2023-03-06] MEDS ORDERED: Morphine 4 MG/ML VIAL ONE (04:30)
[2023-03-06 04:51] LABS: #Eosinphils 0.2 thou/uL (0.0-0.7); #Monocytes 0.6 thou/uL (0.11-0.59); #Neutrophils 3.4 thou/uL (1.40-6.50); %Basophils 0.1 % (0.0-1.0); %Lymphocytes 39.8 % (21.0-51.0); %Monocytes 8.9 % (0.0-10.0); %Neutrophils 47.9 % (42.0-75.0); Hematocrit 35.6 % (36.0-47.0); Hemoglobin 11.9 g/dL (12.0-16.0); Mean Corpuscular HGB CONC 33.4 g/dL (32.0-36.0); Mean Corpuscular Hemoglobin 30.7 pg (27.0-31.0); Mean Corpuscular Volume 91.8 fl (78.0-98.0); Mean Platelet Volume 10.2 fL (7.4-10.4); Platelet Count 297 10x3/uL (130-400); RBC Distribution Width 14.9 % (11.5-14.5); Red Blood Cell (RBC) Count 3.88 mill/uL (4.20-5.40); White Blood Cell (WBC) Count 7.1 10x3/uL (4.8-10.8)
[2023-03-06 05:21] LABS: ALT (SGPT) 10 U/L (8-55); AST (SGOT) 17 U/L (5-34); Albumin 3.7 g/dL (3.4-4.8); Alkaline Phosphatase 58 U/L (40-110); Anion Gap 12 mmol/L (10-20); BUN (Urea Nitrogen) 16 mg/dL (9.8-20.1); Bilirubin, Total 0.2 mg/dL (0.2-1.2); Calc. Creatinine Clearance 0 mL/min (70-130); Calcium 8.9 mg/dL (7.8-10.44); Carbon Dioxide 25 mmol/L (23-31); Chloride 108 mmol/L (98-107); Estimated GFR 60; Globulin 2.7 g/dL (2.4-3.5); Glucose 93 mg/dL (83-110); Lipase 15 U/L (8-78); Potassium 3.3 mmol/L (3.5-5.1); Protein, Total 6.4 g/dL (5.8-8.1); Sodium 142 mmol/L (136-145)
[2023-03-06] MEDS ORDERED: Iopamidol 370 76% 100 ML VIAL ONE (14:05)
== END 2023-03-06 07:16 | disposition home or self-care (01) ==
LOC: ERS 03:57
DX: R10.9 Unspecified abdominal pain (principal); G89.18 Other acute postprocedural pain
CPT/HCPCS: 74177; 80053; 83690; 85025; 96374; 96375; J2270; J2405; Q9967

== ENCOUNTER 2023-10-21 17:24 | Inpatient (IN) | payer MEDICARE ==
[~2023-10-21 17:24] MED LIST changes: -Iopamidol-370 76% 500 ML 1 ML ONE; +Iopamidol-370 76% 500 ML MDV (1 ML CHARGE) ONE
[2023-10-21 18:27] LABS: #Basophils 0.03 10x3/uL (0.0-0.2); %Basophils 0.3 % (0.0-1.0); %Eosinophils 0.5 % (0.0-10.0); %Lymphocytes 32.5 % (21.0-51.0); %Monocytes 8.7 % (0.0-10.0); %Neutrophils 57.8 % (42.0-75.0); Hematocrit 39.2 % (36.0-47.0); Mean Corpuscular HGB CONC 33.2 g/dL (32.0-36.0); Mean Corpuscular Hemoglobin 30.3 pg (27.0-31.0); Mean Corpuscular Volume 91.4 fL (78.0-98.0); Mean Platelet Volume 10.1 fL (7.4-10.4); Platelet Count 291 10x3/uL (130-400); RBC Distribution Width 14.6 % (11.5-14.5); Red Blood Cell (RBC) Count 4.29 mill/uL (4.20-5.40)
[2023-10-21 18:39] LABS: ALT (SGPT) 12 U/L (8-55); AST (SGOT) 18 U/L (5-34); Albumin 3.9 g/dL (3.4-4.8); Alkaline Phosphatase 77 U/L (40-110); Anion Gap 16 mmol/L (10-20); BUN (Urea Nitrogen) 17 mg/dL (9.8-20.1); Bilirubin, Total 0.4 mg/dL (0.2-1.2); Calc. Creatinine Clearance 0 mL/min (70-130); Calcium 9.5 mg/dL (7.8-10.44); Carbon Dioxide 21 mmol/L (23-31); Chloride 104 mmol/L (98-107); Estimated GFR 78; Globulin 3.4 g/dL (2.4-3.5); Glucose 112 mg/dL (83-110); Lipase 18 U/L (8-78); Potassium 4.3 mmol/L (3.5-5.1); Protein, Total 7.3 g/dL (5.8-8.1); Sodium 137 mmol/L (136-145)
[2023-10-21] MEDS ORDERED: Ondansetron PF 4 MG/2 ML Vial ONE (18:46)
[2023-10-21] MEDS ORDERED: Morphine 4 MG/ML VIAL ONE ×4 (18:46→21:29)
[2023-10-21 18:47] LABS: Troponin I Less than 0.010 ng/mL (< 0.028)
[2023-10-21] MEDS ORDERED: Pantoprazole 40 MG VIAL ONE ×3 (18:48→19:28)
[2023-10-21] MEDS ORDERED: Famotidine/PF 20 mg/2ml Vial ONE (18:48)
[2023-10-21 19:36] LABS: Bilirubin Negative (Negative); Blood, Urine 1+ (Negative); CAUTI Indications for Culture Pelvic or flank pain; Clarity Clear (Clear); Glucose, Urine (Dipstick) Normal (Negative); Ketone, Urine Negative (Negative); Leukocyte Negative Leu/uL (Negative); Nitrite Negative (Negative); Protein, Urine (Dipstick) Negative (Neg-Trace); Urobilinogen Normal mg/dL (Less than 2); WBC/HPF 0-3 HPF (0-3); pH, Urine 6.5 (5.0-9.0)
[2023-10-21 19:37] LABS: Bacteria/HPF 1+ HPF (None Seen)
[2023-10-21 19:38] LABS: Urine Culture Reflex No No
[2023-10-21] MEDS ORDERED: Acetaminophen 650 MG Suppository PR PRN (21:56)
[2023-10-21] MEDS: Lactated Ringer's 1,000 ML IV SCH (22:27)
[2023-10-21 23:44] VITALS: BMI 33.8
[2023-10-22] MEDS: Morphine 4 MG/ML VIAL SLOW IVP PRN ×2 (00:44→10:51)
[2023-10-22] MEDS: Ondansetron PF 4 MG/2 ML Vial IVP PRN (00:44)
[2023-10-22 06:54] LABS: #Basophils Less than 0.03 10x3/uL (0.0-0.2); %Basophils 0.1 % (0.0-1.0); %Eosinophils 0.3 % (0.0-10.0); %Lymphocytes 14.1 % (21.0-51.0); %Monocytes 6.2 % (0.0-10.0); Hematocrit 40.3 % (36.0-47.0); Hemoglobin 13.2 g/dL (12.0-16.0); Mean Corpuscular HGB CONC 32.8 g/dL (32.0-36.0); Mean Corpuscular Hemoglobin 29.3 pg (27.0-31.0); Mean Corpuscular Volume 89.6 fL (78.0-98.0); Mean Platelet Volume 10.8 fL (7.4-10.4); Platelet Count 288 10x3/uL (130-400); RBC Distribution Width 14.6 % (11.5-14.5)
[2023-10-22 07:08] LABS: Anion Gap 15 mmol/L (10-20); BUN (Urea Nitrogen) 12 mg/dL (9.8-20.1); Calc. Creatinine Clearance 92 mL/min (70-130); Calcium 9.5 mg/dL (7.8-10.44); Carbon Dioxide 25 mmol/L (23-31); Chloride 106 mmol/L (98-107); Estimated GFR 82; Glucose 133 mg/dL (83-110); Potassium 4.5 mmol/L (3.5-5.1); Sodium 141 mmol/L (136-145)
[2023-10-22] MEDS ORDERED: hydrALAZINE 20 MG/ML VIAL SLOW IVP PRN (08:03)
[2023-10-22] MEDS: Pantoprazole 40 MG VIAL IVP SCH (08:34)
[2023-10-22] MEDS: Magnesium Citrate 300 ML BOT PO SCH (15:20)
[2023-10-22] MEDS: Sucralfate 1 GM TAB PO SCH (17:24)
[2023-10-22] MEDS: QUEtiapine 100 MG TAB PO SCH (20:58)
[2023-10-23] MEDS: Levothyroxine Sodium 100 MCG TAB PO SCH (05:24)
[2023-10-23 08:01] LABS: #Basophils Less than 0.03 10x3/uL (0.0-0.2); %Basophils 0.1 % (0.0-1.0); %Eosinophils 0.8 % (0.0-10.0); %Lymphocytes 26.3 % (21.0-51.0); %Monocytes 9.1 % (0.0-10.0); %Neutrophils 63.4 % (42.0-75.0); Hematocrit 37.8 % (36.0-47.0); Hemoglobin 12.2 g/dL (12.0-16.0); Mean Corpuscular HGB CONC 32.3 g/dL (32.0-36.0); Mean Corpuscular Hemoglobin 29.4 pg (27.0-31.0); Mean Corpuscular Volume 91.1 fL (78.0-98.0); Mean Platelet Volume 10.4 fL (7.4-10.4); Platelet Count 278 10x3/uL (130-400); RBC Distribution Width 14.7 % (11.5-14.5); Red Blood Cell (RBC) Count 4.15 mill/uL (4.20-5.40)
[2023-10-23] MEDS: BuPROPion XL 150 MG ER.TAB PO SCH (08:12)
[2023-10-23 08:17] LABS: ALT (SGPT) 16 U/L (8-55); AST (SGOT) 20 U/L (5-34); Albumin 3.4 g/dL (3.4-4.8); Alkaline Phosphatase 75 U/L (40-110); Anion Gap 12 mmol/L (10-20); BUN (Urea Nitrogen) 9 mg/dL (9.8-20.1); Bilirubin, Total 0.4 mg/dL (0.2-1.2); Calc. Creatinine Clearance 91 mL/min (70-130); Calcium 9.2 mg/dL (7.8-10.44); Carbon Dioxide 28 mmol/L (23-31); Chloride 102 mmol/L (98-107); Estimated GFR 81; Globulin 3.2 g/dL (2.4-3.5); Glucose 100 mg/dL (83-110); Magnesium 2.6 mg/dL (1.6-2.6); Potassium 4.6 mmol/L (3.5-5.1); Protein, Total 6.6 g/dL (5.8-8.1); Sodium 137 mmol/L (136-145)
[2023-10-23] MEDS: Acetaminophen 325 MG TAB PO PRN (09:46)
[2023-10-23] MEDS: Morphine 2 MG/ML VIAL SLOW IVP PRN (20:39)
[2023-10-24 05:40] LABS: #Basophils Less than 0.03 10x3/uL (0.0-0.2); %Basophils 0.3 % (0.0-1.0); %Eosinophils 1.3 % (0.0-10.0); %Lymphocytes 46.5 % (21.0-51.0); %Monocytes 11.1 % (0.0-10.0); %Neutrophils 40.5 % (42.0-75.0); Hematocrit 39.1 % (36.0-47.0); Hemoglobin 12.8 g/dL (12.0-16.0); Mean Corpuscular HGB CONC 32.7 g/dL (32.0-36.0); Mean Corpuscular Hemoglobin 29.5 pg (27.0-31.0); Mean Corpuscular Volume 90.1 fL (78.0-98.0); Mean Platelet Volume 10.1 fL (7.4-10.4); Platelet Count 279 10x3/uL (130-400); RBC Distribution Width 14.6 % (11.5-14.5); Red Blood Cell (RBC) Count 4.34 mill/uL (4.20-5.40)
[2023-10-24 05:48] LABS: Anion Gap 14 mmol/L (10-20); BUN (Urea Nitrogen) 10 mg/dL (9.8-20.1); Calc. Creatinine Clearance 85 mL/min (70-130); Calcium 9.3 mg/dL (7.8-10.44); Carbon Dioxide 25 mmol/L (23-31); Chloride 104 mmol/L (98-107); Estimated GFR 75; Glucose 94 mg/dL (83-110); Potassium 4.2 mmol/L (3.5-5.1); Sodium 139 mmol/L (136-145)
[2023-10-24] MEDS ORDERED: fentaNYL 50 mcg/mL 1 mL Vial ONE (11:47)
[2023-10-24] MEDS ORDERED: PROPOFOL 20 ML ONE (11:47)
[2023-10-24] MEDS ORDERED: Lidocaine 2% PF 5 ML VIAL ONE (11:47)
[2023-10-24] MEDS: Ondansetron PF 4 MG/2 ML Vial IVP PRN (13:59)
[2023-10-24] MEDS: Polyethylene Glycol 3350 17 GM Packet PO SCH (14:53)
[2023-10-25 06:05] LABS: #Basophils Less than 0.03 10x3/uL (0.0-0.2); %Basophils 0.2 % (0.0-1.0); %Eosinophils 0.8 % (0.0-10.0); %Lymphocytes 43.3 % (21.0-51.0); %Monocytes 10.9 % (0.0-10.0); %Neutrophils 44.6 % (42.0-75.0); Hematocrit 38.1 % (36.0-47.0); Hemoglobin 12.7 g/dL (12.0-16.0); Mean Corpuscular HGB CONC 33.3 g/dL (32.0-36.0); Mean Corpuscular Hemoglobin 30.3 pg (27.0-31.0); Mean Corpuscular Volume 90.9 fL (78.0-98.0); Mean Platelet Volume 10.5 fL (7.4-10.4); Platelet Count 294 10x3/uL (130-400); RBC Distribution Width 14.6 % (11.5-14.5); Red Blood Cell (RBC) Count 4.19 mill/uL (4.20-5.40)
[2023-10-25 06:27] LABS: Anion Gap 15 mmol/L (10-20); BUN (Urea Nitrogen) 14 mg/dL (9.8-20.1); Calc. Creatinine Clearance 68 mL/min (70-130); Calcium 9.1 mg/dL (7.8-10.44); Carbon Dioxide 24 mmol/L (23-31); Chloride 102 mmol/L (98-107); Estimated GFR 57; Glucose 88 mg/dL (83-110); Sodium 137 mmol/L (136-145)
[2023-10-25] MEDS: Polyethylene Glycol 3350 17 GM Packet PO SCH (08:15)
[2023-10-25 14:58] VITALS: BP 133/83; TEMP 98.1
== END 2023-10-25 15:36 | disposition home or self-care (01) | DRG 394 ==
LOC: ERS 17:24 → T4-A 21:38
PROVIDERS: ADMIT Student in an Organized Health Care Education/Training Program; ATTEND Family Medicine
PROC: 0DJ08ZZ Inspection of Upper Intestinal Tract, Via Natural or Artificial Opening Endoscopic (ICD-10-PCS; principal; 2023-10-24)
DX: K91.89 Other postprocedural complications and disorders of digestive system (principal); F33.9 Major depressive disorder, recurrent, unspecified; K91.31 Postprocedural partial intestinal obstruction; E03.9 Hypothyroidism, unspecified; E66.9 Obesity, unspecified; Z88.2 Allergy status to sulfonamides; Z88.8 Allergy status to other drugs, medicaments and biological substances; Z79.899 Other long term (current) drug therapy; Z98.890 Other specified postprocedural states; Z68.33 Body mass index [BMI] 33.0-33.9, adult
CPT/HCPCS: 36415; 74177; 80048; 80053; 81001; 83605; 83690; 83735; 84484; 85025; 93005; 96374; 96375; 96376; C9113; J2001; J2270; J2272; J2405; J2704; J3010; J7120; Q9967; S0028

== ENCOUNTER 2024-05-28 11:01 | Inpatient (IN) | payer MEDICARE ==
[2024-05-28] MEDS ORDERED: Morphine 4 MG/ML VIAL ONE (11:28)
[2024-05-28] MEDS ORDERED: Ondansetron PF 4 MG/2 ML Vial ONE ×2 (11:28→13:40)
[2024-05-28 12:00] LABS: #Basophils Less than 0.03 10x3/uL (0.0-0.2); %Basophils 0.3 % (0.0-1.0); %Eosinophils 0.4 % (0.0-10.0); %Lymphocytes 35.6 % (21.0-51.0); %Monocytes 8.6 % (0.0-10.0); %Neutrophils 54.7 % (42.0-75.0); Hematocrit 36.1 % (36.0-47.0); Hemoglobin 12.5 g/dL (12.0-16.0); Mean Corpuscular HGB CONC 34.6 g/dL (32.0-36.0); Mean Corpuscular Hemoglobin 30.6 pg (27.0-31.0); Mean Corpuscular Volume 88.3 fL (78.0-98.0); Mean Platelet Volume 10.1 fL (7.4-10.4); Platelet Count 292 10x3/uL (130-400); RBC Distribution Width 15.9 % (11.5-14.5); Red Blood Cell (RBC) Count 4.09 mill/uL (4.20-5.40)
[2024-05-28 12:22] LABS: Troponin I Less than 0.010 ng/mL (< 0.028)
[2024-05-28 12:24] LABS: ALT (SGPT) 9 U/L (8-55); AST (SGOT) 14 U/L (5-34); Albumin 3.6 g/dL (3.4-4.8); Alkaline Phosphatase 65 U/L (40-110); Anion Gap 12 mmol/L (10-20); BUN (Urea Nitrogen) 20 mg/dL (9.8-20.1); Bilirubin, Total 0.4 mg/dL (0.2-1.2); Calc. Creatinine Clearance 0 mL/min (70-130); Calcium 8.5 mg/dL (7.8-10.44); Carbon Dioxide 20 mmol/L (23-31); Chloride 110 mmol/L (98-107); Estimated GFR 65; Globulin 3.4 g/dL (2.4-3.5); Glucose 90 mg/dL (83-110); Lipase 11 U/L (8-78); Potassium 3.4 mmol/L (3.5-5.1); Sodium 139 mmol/L (136-145)
[2024-05-28] MEDS ORDERED: Iopamidol-370 76% 500 ML MDV (1 ML CHARGE) ONE (14:01)
[2024-05-28 15:06] LABS: Bacteria/HPF None Seen HPF (None Seen); Bilirubin Negative (Negative); Blood, Urine 1+ (Negative); CAUTI Indications for Culture Dysuria,urgency,freq; Clarity Clear (Clear); Glucose, Urine (Dipstick) Normal (Negative); Ketone, Urine Negative (Negative); Leukocyte Negative Leu/uL (Negative); Nitrite Negative (Negative); Protein, Urine (Dipstick) Negative (Neg-Trace); Specific Gravity, Urine 1.035 (1.002-1.036); Urobilinogen Normal mg/dL (Less than 2); WBC/HPF 0-3 HPF (0-3)
[2024-05-28 15:09] LABS: Urine Culture Reflex No No
[2024-05-28] MEDS ORDERED: Morphine 2 MG/ML VIAL ONE (15:17)
[2024-05-28] MEDS ORDERED: Acetaminophen 650 MG Suppository PR PRN (15:46)
[2024-05-28] MEDS ORDERED: Ondansetron ODT 4 MG TAB PO PRN (15:46)
[2024-05-28] MEDS ORDERED: Electrolyte Replacement Protocol 1 EACH FS SCH (16:00)
[2024-05-28 17:29] VITALS: BMI 33.6
[2024-05-28] MEDS: Sodium Chloride 0.9% 1,000 ML IV SCH (17:50)
[2024-05-28] MEDS: Famotidine/PF 20 mg/2ml Vial SLOW IVP SCH (21:32)
[2024-05-28] MEDS: Morphine 4 MG/ML VIAL SLOW IVP PRN (21:36)
[2024-05-28] MEDS: Potassium Chloride 20 MEQ TAB PO SCH (22:06)
[2024-05-28] MEDS: Potassium Chloride 20 MEQ in Premix 1 BAG IVPB SCH (23:11)
[2024-05-29] MEDS: Levothyroxine Sodium 125 MCG TAB PO SCH (04:34)
[2024-05-29] MEDS: FLU (Fluad Triv) TS24-25 (65UP)/MF59C/PF 45 MCG/0.5 ML Syringe IM ONE (05:45)
[2024-05-29 06:55] LABS: #Basophils Less than 0.03 10x3/uL (0.0-0.2); %Basophils 0.1 % (0.0-1.0); %Lymphocytes 38.5 % (21.0-51.0); %Monocytes 9.3 % (0.0-10.0); %Neutrophils 50.7 % (42.0-75.0); Hematocrit 38.3 % (36.0-47.0); Hemoglobin 12.4 g/dL (12.0-16.0); Mean Corpuscular HGB CONC 32.4 g/dL (32.0-36.0); Mean Corpuscular Hemoglobin 29.8 pg (27.0-31.0); Mean Corpuscular Volume 92.1 fL (78.0-98.0); Mean Platelet Volume 11.7 fL (7.4-10.4); Platelet Count 214 10x3/uL (130-400); RBC Distribution Width 16.2 % (11.5-14.5); Red Blood Cell (RBC) Count 4.16 mill/uL (4.20-5.40)
[2024-05-29 07:00] LABS: Anion Gap 12 mmol/L (10-20); BUN (Urea Nitrogen) 12 mg/dL (9.8-20.1); Calc. Creatinine Clearance 92 mL/min (70-130); Calcium 8.1 mg/dL (7.8-10.44); Carbon Dioxide 17 mmol/L (23-31); Chloride 114 mmol/L (98-107); Estimated GFR 87; Glucose 81 mg/dL (83-110); Potassium 4.2 mmol/L (3.5-5.1); Sodium 139 mmol/L (136-145)
[2024-05-29] MEDS: Enoxaparin 40 MG (0.4 mL) SYRINGE SC SCH (07:51)
[2024-05-29] MEDS: BuPROPion XL 150 MG ER.TAB PO SCH (07:53)
[2024-05-29] MEDS: Ondansetron PF 4 MG/2 ML Vial IVP PRN (12:40)
[2024-05-30 07:17] LABS: #Basophils Less than 0.03 10x3/uL (0.0-0.2); %Basophils 0.2 % (0.0-1.0); %Eosinophils 1.1 % (0.0-10.0); %Lymphocytes 31.6 % (21.0-51.0); %Monocytes 10.1 % (0.0-10.0); %Neutrophils 56.7 % (42.0-75.0); Hematocrit 33.4 % (36.0-47.0); Hemoglobin 11.1 g/dL (12.0-16.0); Mean Corpuscular HGB CONC 33.2 g/dL (32.0-36.0); Mean Corpuscular Hemoglobin 29.7 pg (27.0-31.0); Mean Corpuscular Volume 89.3 fL (78.0-98.0); Mean Platelet Volume 10.2 fL (7.4-10.4); Platelet Count 264 10x3/uL (130-400); RBC Distribution Width 15.9 % (11.5-14.5); Red Blood Cell (RBC) Count 3.74 mill/uL (4.20-5.40)
[2024-05-30 07:34] LABS: Anion Gap 12 mmol/L (10-20); BUN (Urea Nitrogen) 11 mg/dL (9.8-20.1); Calc. Creatinine Clearance 105 mL/min (70-130); Calcium 8.2 mg/dL (7.8-10.44); Carbon Dioxide 19 mmol/L (23-31); Chloride 113 mmol/L (98-107); Estimated GFR 92; Glucose 89 mg/dL (83-110); Potassium 3.7 mmol/L (3.5-5.1); Sodium 140 mmol/L (136-145)
[2024-05-30] MEDS: Acetaminophen 325 MG TAB PO PRN (09:54)
[2024-05-30] MEDS: Pantoprazole 40 MG DR.TAB PO SCH (09:55)
[2024-05-30 11:13] VITALS: BP 143/81; TEMP 98.1
== END 2024-05-30 11:46 | disposition home or self-care (01) | DRG 390 ==
LOC: ERS 11:01 → T4-A 15:10
PROVIDERS: ADMIT Internal Medicine; ATTEND Internal Medicine
DX: K56.609 Unspecified intestinal obstruction, unspecified as to partial versus complete obstruction (principal); E03.9 Hypothyroidism, unspecified; E66.9 Obesity, unspecified; F39 Unspecified mood [affective] disorder; Z68.33 Body mass index [BMI] 33.0-33.9, adult; Z88.2 Allergy status to sulfonamides; Z88.8 Allergy status to other drugs, medicaments and biological substances; Z98.890 Other specified postprocedural states; F41.9 Anxiety disorder, unspecified; Z90.49 Acquired absence of other specified parts of digestive tract; Z79.899 Other long term (current) drug therapy
CPT/HCPCS: 36415; 71045; 74177; 74250; 80048; 80053; 81001; 83690; 84484; 85025; 90653; 93005; 96374; 96375; 96376; J1650; J2272; J2405; J3480; J3490; J7030; Q9967

== ENCOUNTER 2024-06-20 16:58 | Inpatient (IN) | payer MEDICARE ==
[2024-06-20 19:06] LABS: #Basophils Less than 0.03 10x3/uL (0.0-0.2); #Eosinophils Less than 0.03 10x3/uL (0.0-0.7); %Basophils 0.1 % (0.0-1.0); %Eosinophils 0.2 % (0.0-10.0); %Lymphocytes 22.5 % (21.0-51.0); %Monocytes 8.4 % (0.0-10.0); %Neutrophils 68.6 % (42.0-75.0); Hematocrit 38.8 % (36.0-47.0); Hemoglobin 13.1 g/dL (12.0-16.0); Mean Corpuscular HGB CONC 33.8 g/dL (32.0-36.0); Mean Corpuscular Hemoglobin 29.6 pg (27.0-31.0); Mean Corpuscular Volume 87.8 fL (78.0-98.0); Mean Platelet Volume 10.9 fL (7.4-10.4); Platelet Count 307 10x3/uL (130-400); RBC Distribution Width 14.7 % (11.5-14.5); Red Blood Cell (RBC) Count 4.42 mill/uL (4.20-5.40)
[2024-06-20 19:27] LABS: ALT (SGPT) 10 U/L (Less than 34); AST (SGOT) 21 U/L (11-34); Albumin 3.9 g/dL (3.1-4.5); Alkaline Phosphatase 82 U/L (40-110); Anion Gap 19 mmol/L (10-20); BUN (Urea Nitrogen) 18 mg/dL (9.8-20.1); Bilirubin, Total 0.4 mg/dL (0.3-1.2); Calc. Creatinine Clearance 0 mL/min (70-130); Calcium 10.2 mg/dL (7.8-10.44); Carbon Dioxide 15 mmol/L (23-31); Chloride 110 mmol/L (98-107); Estimated GFR 91; Globulin 3.9 g/dL (2.4-3.5); Glucose 149 mg/dL (83-110); Lipase 48 U/L (8-78); Potassium 3.9 mmol/L (3.5-5.1); Protein, Total 7.8 g/dL (5.8-8.1); Sodium 140 mmol/L (136-145)
[2024-06-20 19:28] LABS: Troponin I Less than 0.010 ng/mL (< 0.028)
[2024-06-20] MEDS ORDERED: Morphine 2 MG/ML VIAL ONE ×2 (20:31→22:47)
[2024-06-20] MEDS ORDERED: Ondansetron PF 4 MG/2 ML Vial ONE (20:31)
[2024-06-20] MEDS ORDERED: Famotidine/PF 20 mg/2ml Vial ONE (20:32)
[2024-06-20] MEDS ORDERED: Ondansetron ODT 4 MG TAB SL PRN (22:45)
[2024-06-20] MEDS ORDERED: Sodium Chloride 0.9% 1,000 ML IV SCH (22:45)
[2024-06-20] MEDS ORDERED: Ondansetron PF 4 MG/2 ML Vial IVP PRN (22:45)
[2024-06-20] MEDS ORDERED: Acetaminophen 325 MG TAB PO PRN (23:06)
[2024-06-20] MEDS ORDERED: Labetalol HCl 100 MG/20 ML VIAL ONE (23:39)
[2024-06-21] MEDS: Morphine 4 MG/ML VIAL SLOW IVP PRN (03:51)
[2024-06-21] MEDS: Ondansetron PF 4 MG/2 ML Vial IVP PRN (03:51)
[2024-06-21] MEDS: Sodium Bicarb 50 mEq/50 ML VIAL IVP SCH (03:51)
[2024-06-21] MEDS: Lactated Ringer's 1,000 ML IV SCH (03:52)
[2024-06-21 04:47] LABS: #Basophils Less than 0.03 10x3/uL (0.0-0.2); #Eosinophils Less than 0.03 10x3/uL (0.0-0.7); %Basophils 0.2 % (0.0-1.0); %Eosinophils 0.2 % (0.0-10.0); %Lymphocytes 10.7 % (21.0-51.0); %Monocytes 4.9 % (0.0-10.0); %Neutrophils 83.7 % (42.0-75.0); Hematocrit 38.4 % (36.0-47.0); Hemoglobin 12.9 g/dL (12.0-16.0); Mean Corpuscular HGB CONC 33.6 g/dL (32.0-36.0); Mean Corpuscular Hemoglobin 29.5 pg (27.0-31.0); Mean Corpuscular Volume 87.9 fL (78.0-98.0); Platelet Count 297 10x3/uL (130-400); RBC Distribution Width 14.8 % (11.5-14.5); Red Blood Cell (RBC) Count 4.37 mill/uL (4.20-5.40)
[2024-06-21 04:49] VITALS: BMI 31.1
[2024-06-21 05:10] LABS: Anion Gap 17 mmol/L (10-20); BUN (Urea Nitrogen) 17 mg/dL (9.8-20.1); Calc. Creatinine Clearance 105 mL/min (70-130); Calcium 9.3 mg/dL (7.8-10.44); Carbon Dioxide 25 mmol/L (23-31); Chloride 105 mmol/L (98-107); Estimated GFR 93; Glucose 197 mg/dL (83-110); Potassium 3.9 mmol/L (3.5-5.1); Sodium 143 mmol/L (136-145)
[2024-06-21] MEDS: Levothyroxine Sodium 125 MCG TAB PO SCH (05:57)
[2024-06-21] MEDS: Pantoprazole 40 MG DR.TAB PO SCH (08:39)
[2024-06-21] MEDS: Polyethylene Glycol 3350 17 GM Packet PO SCH (08:39)
[2024-06-21] MEDS: BuPROPion XL 150 MG ER.TAB PO SCH (08:39)
[2024-06-21] MEDS ORDERED: cefOXitin 2 GM in Sodium Chloride 0.9% 100 ML IVPB SCH (12:15)
[2024-06-21] MEDS ORDERED: Rocuronium Bromide 10 MG/ML (10ML VIAL) ONE (12:22)
[2024-06-21] MEDS ORDERED: Lidocaine 2% PF 100 mg/5 ml Syringe ONE (12:22)
[2024-06-21] MEDS ORDERED: Dexamethasone 20 MG/5 ML VIAL ONE (12:22)
[2024-06-21] MEDS ORDERED: PROPOFOL 20 ML ONE (12:22)
[2024-06-21] MEDS ORDERED: Ondansetron PF 4 MG/2 ML Vial ONE (12:22)
[2024-06-21] MEDS ORDERED: fentaNYL PF 100 MCG/2 ML SYRINGE ONE (12:22)
[2024-06-21] MEDS ORDERED: Lidocaine 2% 6 ML (Jelly) SYR ONE (12:29)
[2024-06-21] MEDS ORDERED: cefOXitin 2 GM VIAL ONE (12:58)
[2024-06-21] MEDS ORDERED: Sodium Chloride 0.9% 100 ML ONE (12:58)
[2024-06-21] MEDS ORDERED: Labetalol HCl 100 MG/20 ML VIAL ONE (13:41)
[2024-06-21] MEDS ORDERED: SUGAMMADEX SODIUM 200 MG/2 ML VIAL ONE (13:42)
[2024-06-21] MEDS ORDERED: Ondansetron PF 4 MG/2 ML Vial IVP PRN ×2 (14:02→14:30)
[2024-06-21] MEDS ORDERED: Promethazine HCl 25 MG/ML VIAL IM PRN ×2 (14:02→14:30)
[2024-06-21] MEDS ORDERED: hydrALAZINE 20 MG/ML VIAL SLOW IVP PRN (14:02)
[2024-06-21] MEDS ORDERED: Ipratropium/Albuterol 3 ML NEB NEB PRN (14:02)
[2024-06-21] MEDS ORDERED: fentaNYL 50 mcg/mL 1 mL Vial ONE ×2 (14:09→14:30)
[2024-06-21] MEDS ORDERED: diphenhydrAMINE 25 MG CAP PO PRN (14:30)
[2024-06-21] MEDS ORDERED: Naloxone HCl 0.4 mg/ml Vial IV PRN (14:30)
[2024-06-21] MEDS ORDERED: diphenhydrAMINE 50 MG/ML VIAL IM/IV PRN (14:30)
[2024-06-21] MEDS ORDERED: Fentanyl CADD 100 ML IVPB SCH (14:30)
[2024-06-21] MEDS: Sodium Chloride 0.9% 1,000 ML IV SCH (17:25)
[2024-06-21] MEDS: cefOXitin 2 GM in Sodium Chloride 0.9% 100 ML IVPB SCH (21:24)
[2024-06-21] MEDS: QUEtiapine 100 MG TAB PO SCH (21:25)
[2024-06-22 05:18] LABS: #Basophils Less than 0.03 10x3/uL (0.0-0.2); #Eosinophils Less than 0.03 10x3/uL (0.0-0.7); %Basophils 0.2 % (0.0-1.0); %Eosinophils 0.1 % (0.0-10.0); %Lymphocytes 17.9 % (21.0-51.0); %Neutrophils 70.5 % (42.0-75.0); Hematocrit 32.3 % (36.0-47.0); Hemoglobin 10.6 g/dL (12.0-16.0); Mean Corpuscular HGB CONC 32.8 g/dL (32.0-36.0); Mean Corpuscular Hemoglobin 29.4 pg (27.0-31.0); Mean Corpuscular Volume 89.7 fL (78.0-98.0); Platelet Count 213 10x3/uL (130-400); RBC Distribution Width 15.4 % (11.5-14.5)
[2024-06-22 05:42] LABS: Anion Gap 12 mmol/L (10-20); BUN (Urea Nitrogen) 19 mg/dL (9.8-20.1); Calc. Creatinine Clearance 105 mL/min (70-130); Calcium 8.5 mg/dL (7.8-10.44); Carbon Dioxide 22 mmol/L (23-31); Chloride 113 mmol/L (98-107); Estimated GFR 93; Glucose 108 mg/dL (83-110); Potassium 3.6 mmol/L (3.5-5.1); Sodium 143 mmol/L (136-145)
[2024-06-22] MEDS: Enoxaparin 40 MG (0.4 mL) SYRINGE SC SCH (08:31)
[2024-06-22] MEDS: Pantoprazole 40 MG VIAL IVP SCH (08:31)
[2024-06-22] MEDS: Lactated Ringer's 1,000 ML IV SCH (08:32)
[2024-06-22] MEDS: Potassium Chloride 10 MEQ in Premix 1 BAG IVPB SCH (14:08)
[2024-06-23 06:33] LABS: #Basophils Less than 0.03 10x3/uL (0.0-0.2); %Basophils 0.1 % (0.0-1.0); %Eosinophils 0.8 % (0.0-10.0); %Lymphocytes 36.9 % (21.0-51.0); %Monocytes 13.4 % (0.0-10.0); %Neutrophils 48.4 % (42.0-75.0); Hematocrit 29.5 % (36.0-47.0); Hemoglobin 9.6 g/dL (12.0-16.0); Mean Corpuscular HGB CONC 32.5 g/dL (32.0-36.0); Mean Corpuscular Hemoglobin 29.4 pg (27.0-31.0); Mean Corpuscular Volume 90.5 fL (78.0-98.0); Platelet Count 187 10x3/uL (130-400); RBC Distribution Width 15.4 % (11.5-14.5); Red Blood Cell (RBC) Count 3.26 mill/uL (4.20-5.40)
[2024-06-23 07:00] LABS: Anion Gap 10 mmol/L (10-20); BUN (Urea Nitrogen) 12 mg/dL (9.8-20.1); Calc. Creatinine Clearance 111 mL/min (70-130); Calcium 8.2 mg/dL (7.8-10.44); Carbon Dioxide 24 mmol/L (23-31); Chloride 109 mmol/L (98-107); Estimated GFR 94; Glucose 93 mg/dL (83-110); Magnesium 1.7 mg/dL (1.6-2.6); Potassium 3.5 mmol/L (3.5-5.1); Sodium 139 mmol/L (136-145)
[2024-06-23] MEDS: Magnesium 2 GM/50 ML(in water) 2 GM in Premix 1 BAG IVPB SCH (08:43)
[2024-06-23] MEDS: DC PCA Order Set 1 EACH FS ONE (08:59)
[2024-06-23] MEDS: Lactated Ringer's 1,000 ML IV SCH (08:59)
[2024-06-23] MEDS: Potassium Chloride 10 MEQ in Premix 1 BAG IVPB SCH (09:50)
[2024-06-23] MEDS: HYDROcodone/Acetaminophen 7.5/325 mg Tablet PO PRN (10:01)
[2024-06-23] MEDS: Metoprolol Tartrate 50 MG TAB PO SCH (10:14)
[2024-06-23] MEDS: Enoxaparin 80 MG (0.8 mL) SYRINGE SC SCH ×2 (12:47→20:47)
[2024-06-23] MEDS: dilTIAZem 25 MG/5 ML VIAL SLOW IVP SCH (12:47)
[2024-06-23] MEDS: Metoprolol Tartrate 25 MG TAB PO SCH (20:47)
[2024-06-24 06:12] LABS: #Basophils Less than 0.03 10x3/uL (0.0-0.2); %Basophils 0.2 % (0.0-1.0); %Eosinophils 1.9 % (0.0-10.0); %Lymphocytes 42.7 % (21.0-51.0); %Monocytes 12.3 % (0.0-10.0); %Neutrophils 42.6 % (42.0-75.0); Mean Corpuscular HGB CONC 32.1 g/dL (32.0-36.0); Mean Corpuscular Hemoglobin 29.5 pg (27.0-31.0); Mean Corpuscular Volume 91.8 fL (78.0-98.0); Mean Platelet Volume 11.3 fL (7.4-10.4); Platelet Count 185 10x3/uL (130-400); RBC Distribution Width 15.1 % (11.5-14.5); Red Blood Cell (RBC) Count 3.05 mill/uL (4.20-5.40)
[2024-06-24 06:37] LABS: Anion Gap 13 mmol/L (10-20); BUN (Urea Nitrogen) 13 mg/dL (9.8-20.1); Calc. Creatinine Clearance 105 mL/min (70-130); Calcium 8.2 mg/dL (7.8-10.44); Carbon Dioxide 24 mmol/L (23-31); Chloride 108 mmol/L (98-107); Estimated GFR 93; Glucose 83 mg/dL (83-110); Potassium 3.8 mmol/L (3.5-5.1); Sodium 141 mmol/L (136-145)
[2024-06-24] MEDS ORDERED: Lansoprazole 30 MG/10 ML UDCUP PO SCH (09:00)
[2024-06-24] MEDS: Pantoprazole 40 MG GRANULES PACKET PO SCH (10:27)
[2024-06-24] MEDS ORDERED: Electrolyte Replacement Protocol FS PRN (11:30)
[2024-06-24] MEDS: Magnesium 2 GM/50 ML(in water) 2 GM in Premix 1 BAG IVPB SCH (13:52)
[2024-06-24] MEDS: Electrolyte Replacement Protocol 1 EACH FS ONE (14:16)
[2024-06-24 15:22] VITALS: BP 130/60; TEMP 98.5
[2024-06-24 15:36] LABS: Free T4 (Free Thyroxine) 2.26 ng/dL (0.70-1.48); Thyroid Stimulating Hormone 0.0339 uIU/mL (0.35-4.94)
[2024-06-24] MEDS ORDERED: Methimazole 5 MG TAB PO SCH (16:30)
[2024-06-25] MEDS ORDERED: Methimazole 5 MG TAB PO SCH (09:00)
== END 2024-06-24 18:05 | disposition home or self-care (01) | DRG 354 ==
LOC: ERS 16:58 → 2NO 22:38 → SURG B 06-21 16:01 → 2NO 06-23 11:43
PROVIDERS: ADMIT Student in an Organized Health Care Education/Training Program; ATTEND Internal Medicine
PROC: 0WQF0ZZ Repair Abdominal Wall, Open Approach (ICD-10-PCS; principal; 2024-06-21)
DX: K43.6 Other and unspecified ventral hernia with obstruction, without gangrene (principal); E87.20 Acidosis, unspecified; E66.9 Obesity, unspecified; I48.0 Paroxysmal atrial fibrillation; Z96.653 Presence of artificial knee joint, bilateral; I10 Essential (primary) hypertension; F41.9 Anxiety disorder, unspecified; E03.9 Hypothyroidism, unspecified; Z88.2 Allergy status to sulfonamides; Z88.8 Allergy status to other drugs, medicaments and biological substances; Z79.899 Other long term (current) drug therapy; Z79.890 Hormone replacement therapy; Z68.31 Body mass index [BMI] 31.0-31.9, adult; Z98.84 Bariatric surgery status; Z90.49 Acquired absence of other specified parts of digestive tract; Z90.710 Acquired absence of both cervix and uterus
CPT/HCPCS: 36415; 71045; 74018; 74176; 80048; 80053; 83690; 83735; 84439; 84443; 84484; 85025; 87428; 93005; 93010; 93306; 96374; 96375; 96376; A4314; J0694; J1100; J1650; J2003; J2270; J2272; J2405; J2470; J2704; J3010; J3475; J3480; J3490; J7030; J7120